=== PATIENT | male | born 1955 | race Caucasian/White ===

== ENCOUNTER → 2018-03-07 | Outpatient (CLI) | payer BC, OTHER ==
[~2018-03-07] MED LIST: CALCITRIOL PO; CALCIUM CARBON500 M1 PO; CALCIUM CARBON650 M2 PO; LEVOTHYROXINE PO; NABUMETONE; PROVIGIL 100MG100 MG PO; PROVIGIL200 MG PO; SYNTHROID0.075 MG/T PO; SYNTHROID0.2 MG/TAB PO; VITAMIN D5000 IU PO; WELLBUTRIN SR200 MG PO; ZOCOR 40MG40 MG PO
== END ==
LOC: COL.RAD 08:50
DX: M25.551 Pain in right hip (principal)
CPT/HCPCS: J3301; Q9967

== ENCOUNTER → 2018-06-18 | Outpatient (CLI) | payer BC, OTHER | LOC: COL.RAD 09:43 | DX: M16.11 Unilateral primary osteoarthritis, right hip (principal) | CPT/HCPCS: J3301; Q9967 ==

== ENCOUNTER → 2019-05-29 | Outpatient (CLI) | payer MEDICARE, OTHER | LOC: COL.RAD 09:37 | DX: M48.02 Spinal stenosis, cervical region (principal); Z98.890 Other specified postprocedural states ==

== ENCOUNTER → 2023-05-18 | Outpatient (CLI) | payer MEDICARE, OTHER ==
[~2023-05-18] VITALS: Ht 177.8 cm; Wt 106.5 kg
[~2023-05-18] MED LIST changes: +MULTIPLE VITAMI1 CAP PO; +RELAFEN 50500 MG/TAB PO; +SYNTHROID0.3 MG PO
--- NOTE | 2023-05-18 07:40 | NUR ---
leaves with staff to fatou
[2023-05-18 08:45] VITALS: BP 144/84; PULSE 73
--- NOTE | 2023-05-18 08:45 | NUR ---
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
--- NOTE | 2023-05-18 09:15 | NUR ---
LEGS ARE NO LONGER NUMB OR HEAVY. STILL CANT MOVE HIS FEET MUCH JUST A SMALL AMT OFF THE FLOOR. 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
--- NOTE | 2023-05-18 09:42 | NUR ---
HE CAN STAND BUT THE LEFT LEG LWILL NOT HOLD WEIGHT AND SO HE CANNOT WALK. LEFT FOOT HAS NO STRENGTH
== END ==
LOC: COL.RAD 06:48
DX: M54.41 Lumbago with sciatica, right side (principal); M54.42 Lumbago with sciatica, left side; M48.00 Spinal stenosis, site unspecified
CPT/HCPCS: J0665; J3301

== ENCOUNTER → 2023-05-31 | Outpatient (CLI) | payer MEDICARE, OTHER | LOC: COL.RAD 07:14 | DX: F17.201 Nicotine dependence, unspecified, in remission (principal) ==